=== PATIENT | female | born 1970 | race Caucasian/White ===

== ENCOUNTER → 2025-02-12 10:45 | Outpatient (REF) | payer OTHER, SELFPAY | LOC: RCS 10:45 | PROVIDERS: ATTENDING PHYSICIAN Internal Medicine Cardiovascular Disease; FAMILY PHYSICIAN Family Medicine | DX: R06.02 Shortness of breath (principal) | CPT/HCPCS: 93017 ==

== ENCOUNTER → 2025-03-05 07:42 | Outpatient (REF) | payer OTHER, SELFPAY | LOC: RCS 07:42 | PROVIDERS: ATTENDING PHYSICIAN Internal Medicine Cardiovascular Disease; FAMILY PHYSICIAN Family Medicine | DX: R06.02 Shortness of breath (principal) | CPT/HCPCS: 93306 ==

== ENCOUNTER → 2025-03-06 07:01 | Outpatient (REF) | payer OTHER, SELFPAY | LOC: RCS 07:01 | PROVIDERS: ATTENDING PHYSICIAN Internal Medicine Cardiovascular Disease; FAMILY PHYSICIAN Family Medicine | DX: R94.31 Abnormal electrocardiogram [ECG] [EKG] (principal); R07.9 Chest pain, unspecified; R00.2 Palpitations; R06.02 Shortness of breath | CPT/HCPCS: 78452; 93017; A9500 ==

== ENCOUNTER → 2025-04-08 11:19 | Outpatient (REF) | payer OTHER, SELFPAY ==
[2025-04-08 16:04] LABS: % Basophils 0.2 % (0-2); % Eosinophils 0.9 % (0-6); % Immature Granulocytes 0.5 % (0-0.5); % Lymphocytes 41.5 % (20.5-51.1); % Monocytes 6.2 % (1.7-9.3); % Neutrophils 50.7 % (42.2-75.2); Absolute Lymphocytes 1.8 10^3/uL (1.2-3.4); Absolute Monocytes 0.3 10^3/uL (0.1-0.6); Absolute Neutrophils 2.2 10^3/uL (1.4-6.5); Hematocrit 37.5 % (37.0-47.0); Hemoglobin 12.4 g/dL (12.0-16.0); Mean Corp Hgb Conc. 33.1 g/dL (33.0-37.0); Mean Corpuscular Hgb 28.2 pg (27.0-31.0); Mean Corpuscular Volume 85.2 fL (81.0-99.0); Mean Platelet Volume 9.9 fL (7.4-10.4); Nucleated Red Blood Cells % 0 %; Platelet Count 200 10^3/uL (130-400); Red Cell Dist. Width 13.1 % (11.5-14.5); White Blood Cell Count 4.4 10^3/uL (4.8-10.8)
[2025-04-08 16:22] LABS: ALT (SGPT) 26 U/L (0-35); AST (SGOT) 28 U/L (14-36); Albumin 4.7 g/dl (3.5-5.0); Alkaline Phosphatase 91 U/L (38-126); Blood Urea Nitrogen 14 mg/dl (7-17); Calcium 9.8 mg/dl (8.4-10.2); Carbon Dioxide 27 mmol/L (22-30); Chloride 106 mmol/L (98-107); Glucose 94 mg/dl (70-99); HDL Cholesterol 71 mg/dl; LDL Cholesterol, Calculated 151 mg/dl; Potassium 4.1 mmol/L (3.5-5.1); Sodium 140 mmol/L (135-145); Total Bilirubin 0.7 mg/dl (0.2-1.3); Total Cholesterol 245 mg/dl (50-199); Total Protein 7.6 g/dl (6.3-8.2); Triglyceride 115 mg/dl (10-149); Very Low Density Lipoprotein 23 mg/dl (0-30); eGFR > 60.00
[2025-04-08 16:32] LABS: FSH 84.2 mIU/ml; Free T4 1.04 ng/dl (0.78-2.19); Progesterone 0.49 ng/ml; Vitamin D, 25-OH*** 50.9 ng/mL (30-80)
[2025-04-08 16:34] LABS: Free T3 3.95 pg/ml (2.77-5.27)
[2025-04-08 16:47] LABS: Estradiol 17.7 pg/ml
[2025-04-08 16:49] LABS: Cortisol, Random 6.4 ug/dl
[2025-04-08 17:25] LABS: Folate 5.3 ng/ml (2.76-20); Vitamin B12 287 pg/ml (239-931)
[2025-04-09 08:24] LABS: Glycohemoglobin (HgbA1c) 5.2 % (4.0-5.6)
[2025-04-10 21:45] LABS: Estriol <0.20 ng/mL
[2025-04-11 02:23] LABS: Insulin, Random 7 uIU/mL
[2025-04-11 05:39] LABS: IGF-1 Z Score Calculation -0.2; Insulin-like Growth Factor I 110 ng/mL (51-233)
== END ==
LOC: HWRAD 11:19
PROVIDERS: ATTENDING PHYSICIAN Internal Medicine Endocrinology, Diabetes & Metabolism; FAMILY PHYSICIAN Family Medicine; REFERRING PHYSICIAN Nuclear Medicine
DX: E06.3 Autoimmune thyroiditis (principal); E04.1 Nontoxic single thyroid nodule; R53.83 Other fatigue; I10 Essential (primary) hypertension; R73.09 Other abnormal glucose; Z79.890 Hormone replacement therapy; N95.2 Postmenopausal atrophic vaginitis; E55.9 Vitamin D deficiency, unspecified; R63.5 Abnormal weight gain; N95.1 Menopausal and female climacteric states; E03.9 Hypothyroidism, unspecified; E34.9 Endocrine disorder, unspecified; E23.0 Hypopituitarism
CPT/HCPCS: 36415; 76536; 80053; 80061; 82306; 82533; 82607; 82626; 82627; 82670; 82671; 82677; 82746; 83001; 83002; 83036; 83090; 83525; 83735; 84144; 84270; 84305; 84402; 84403; 84439; 84443; 84481; 85025; 86141